=== PATIENT | female | born 1935 | race Caucasian/White ===

== ENCOUNTER 2020-07-11 02:23 | Inpatient (IN) ==
--- NOTE | 2020-07-11 02:51 | Emergency Department Note ---
SOB HPI General Chief Complaint: Shortness of Breath/Dyspnea Stated Complaint: shortness of breathe Time Seen by Provider: 07/11/20 02:38 Mode of arrival: EMS Limitations: no limitations History of Present Illness HPI Narrative: Narrative: This 85-year-old female comes to the emergency room by EMS from her home, after described shortness of breath. She finished two antibiotics 2 days ago, they were prescribed at [facility] for >>> She reports trying to sleep in her bed instead of recliner causing today's shortness of breaht. Her triage vitals with elevated BP at 213/121, pulse elevated at 115, RR @25, T @ 97.4, 95%. Patient reports some degree of sweatiness just this evening and nausea accompanied with just difficulty getting her breath. She had been on an albuterol that had been given to her as an inhaler earlier in the course and has been using it about every 4 hours. She has no history of asthma but does have a history of pneumonia. She does not believe she has had fevers or chills or sweats prior as a problem. She has had a little bit of runny nose but no sore throat. She has had some cough that has occurred just this last day or 2 with some clear phlegm noted this evening as well. She has had some swelling in her legs and took a diuretic for a few days but then her doctor had her stop it. This was a few days ago. She is feeling quite fatigued and tired as well generally. She denies having missed any of her blood pressure medication(s). Related Data Home Medications Medication Instructions Recorded Confirmed Ca-D3-mag fo-mjfj-eot-h[place]-bor 1 tab PO DAILY 07/11/20 07/11/20 [Calcium 600-D3 Plus (mag-zinc)] Lactobacillus acidophilus 10 mg PO QDAY 07/11/20 07/11/20 albuterol sulfate 2 puff INHALATION Q4HP PRN 07/11/20 07/11/20 chromium picolinate 400 mcg PO QDAY 07/11/20 07/11/20 ergocalciferol (vitamin D2) 10 mcg PO QDAY 07/11/20 07/11/20 escitalopram oxalate 5 mg PO QDAY 07/11/20 07/11/20 fexofenadine 180 mg PO HS 07/11/20 07/11/20 furosemide [Lasix] 20 mg PO DAILY PRN 07/11/20 07/11/20 losartan 50 mg PO BID 07/11/20 07/11/20 vit B ddgy-C-mvpva acid-vit D3 1 tab PO DAILY 07/11/20 07/11/20 Allergies Allergy/AdvReac Type Severity Reaction Status Date / Time clarithromycin Allergy Unknown Unknown Verified 07/11/20 03:06 doxycycline Allergy Unknown Unknown Verified 07/11/20 03:06 methylprednisolone Allergy Unknown Unknown Verified 07/11/20 03:06 Penicillins Allergy Unknown Unknown Verified 07/11/20 03:06 Review of Systems ROS ROS Narrative: Narrative: 10 system Review of Systems negative except as mentioned above. [facility] Narrative Patient History Narrative: Narrative: Medical/Surgical/Family History All Active Problems (Updated 07/11/20 @ 09:11 by Pedro Villaseñor DO) Pneumonia of both lower lobes (Acute) Acute CHF (congestive heart failure) (Acute) Hypoxia (Acute) Debility (Acute) GETACHEW (generalized anxiety disorder) (Acute) Hypertension, essential (Acute) Medical History (Updated 07/11/20 @ 09:11 by Pedro Villaseñor DO) GETACHEW (generalized anxiety disorder) (Acute) Hypertension, essential (Acute) Surgical History (Updated 07/11/20 @ 03:36 by Pedro Villaseñor DO) History of breast biopsy (Acute) benign Social History Smoking Status: Former smoker Alcohol Intake Frequency: does not drink Substance Use: does not use Exam Narrative Narrative: Narrative: General Limitations: no limitations General appearance: Present alert, in no apparent distress, malaise, nontoxic and other (Is moderately short of breath) Head Head: Present atraumatic and normocephalic Eye Eye: Present normal appearance, PERRL and EOMI ENT ENT: Present normal oropharynx and mucous membranes moist Neck Neck: Present trachea midline and other (Anterior upper neck and under the chin area was actually very cool to cold in temperature.); Absent lymphadenopathy and thyromegaly Chest Chest: Present symmetric chest wall rise Respiratory Respiratory: Present rales/crackles (Mild to moderate expiratory wheeze and no crackles throughout all lung stoll.) and prolonged expiratory phase (slightly or mildly); Absent respiratory distress, stridor and accessory muscle use Cardiovascular Cardiovascular: Present regular rate and tachycardia; Absent systolic murmur and diastolic murmur Adbominal Abdominal: Present soft; Absent distention, tenderness, guarding, rebound, rigidity, organomegaly and mass Extremities Extremities: Present pedal edema and pretibial edema (2/4 pitting bilateral); Absent calf tenderness and cyanosis Back Back: Neurological Neurological: Present alert, oriented X3 and other (fatigued/tired but responds appropriately and intelligently.) Psychiatric Psychiatric: Present flat affect, serious and poor eye contact (mildly; appears to be due to breathing effort, and fatigue.); Absent depressed, agitated and anx ious Skin Skin: Present cool and dry; Absent cyanosis and pallor Course Vital Signs Vital signs: Vital Signs Temperature 97.4 F 07/11/20 02:25 Pulse Rate 115 H 07/11/20 02:25 Respiratory Rate 25 H 07/11/20 02:25 Blood Pressure 213/121 07/11/20 02:25 Pulse Oximetry (%) 95 07/11/20 02:25 Temperature 98.6 F 07/11/20 04:10 Pulse Rate 97 H 07/11/20 09:01 Respiratory Rate 22 07/11/20 09:01 Blood Pressure 163/88 07/11/20 09:01 Pulse Oximetry (%) 95 07/11/20 09:01 [facility] MDM Narrative Medical decision making narrative: Narrative: 3:04 AM - EKG demonstrates sinus tachycardia with no ACS. Probable left atrial enlargement. 3:15 AM - patient interviewed and examined. Recent treatment for pneumonia with seeming worsening shortness of breath that is quite significant. She has had some edema as well but no specific history of CHF. Here with cough and expiratory wheezes throughout. We will give her an albuterol MDI treatment with spacer device. Her blood pressures are still significantly elevated but will observe and if they do not come down then treat. 3:49 AM - on my review chest x-ray demonstrates bibasilar patchy infiltrates with also increased markings throughout all lung stoll compatible with some degree of CHF/pulmonary congestion. We will go ahead with a diuretic and if blood pressure does not come down then nitroglycerin. Intensive chart review from her recent ED visit at [facility] on 06/27/20 reveals: * shortness of breath onset 1 week prior to this date and had been seen recently previous to this date at urgent care and prescribed azithromycin and then in PCP's office Maite Martinez. * There was also an anxiety medication that she had not yet picked up. * Benazepril is her blood pressure medication. * At home and oximetry went as low as 83%. She does not usually use oxygen at home. * No cardiac history except for the hypertension * denied recent travel, calf pain or tenderness, recent surgery, history of malignancy, hemoptysis or DVT. * She also reported an allergy to methylprednisolone and penicillins as well as clarithromycin and doxycycline. * She is a former smoker. * She had a low sodium of 129 as well as a random glucose elevated at 203. * Chest x-ray impression was small effusions and atelectasis. Or pulmonary congestion but no infiltrate. depending on which area of the chart I am reading from. * She was given ceftriaxone and then cefdinir was added to her azithromycin. * Her Covid test (negative) was an RNA NAAT. 4:18 AM - ABG comes back with room air pH 7.34, PCO2 45, PO2 84, base excess -1.7, HCO3 24. Lactic acid 1.4. 4:50 AM - patient's clinical status significantly improved with less dyspnea and much clear lungs after the furosemide. 5:30 AM - labs include CBC coming back with a white count of 12.5. Other labs p ending. 5:49 AM - upon calling lab they report still 10 to 15 minutes before results come back. Nursing reports that patient's oxygen delivery was weaned down to room air but with sleeping went down to 88 or 89% and so an additional liter added back. 6:26 AM - official reading from occludes: Pleura:Findings consistent with small bilateral pleural effusions, left worse than right IMPRESSION: 1. Bilateral diffuse interstitial infiltrates with bibasilar predominance 2. Interstitial pulmonary edema is possible. 3. Pleural effusions are not typical of interstitial fibrosis or Covid pneumoni a although interstitial edema could be superimposed upon these processes. 6:26 AM - labs include: Electrolytes mildly abnormal with sodium 128, chloride 95, carbon dioxide is 20 but anion gap normal at 13.0. Glucose elevated at 241. LFTs, proteins unremarkable. Troponin less than 0.01. * Will do a second serial troponin. BNP elevated at 4402. Pro calcitonin is 0.05. Covid rapid/[place] PCR is negative. * Will order the RNA NAAT. 9:00 AM - patient remains mildly dyspneic but much better but still very sleepy and still requiring oxygen to keep her oximetry above 89%. She is willing to stay which is recommended based on hypoxia, initial respiratory distress, pneumonia on x-ray plus pulmonary edema, hyponatremia, etc. Care transferred to Dr. Simpson who will help facilitate this admission. Lab Data Result diagrams: 07/11/20 04:07 07/11/20 04:07 Labs: Lab Results 07/11/20 07/11/20 07/11/20 Range/Units 04:07 04:07 04:07 WBC 12.5 H (4.5-11.0) K/mcL RBC 4.14 (4.00-5.20) M/mcL Hgb 12.7 (12.0-15.0) g/dL Hct 38.0 (36.0-48.0) % MCV 91.8 (80.0-100.0) fL MCH 30.7 (26.0-34.0) pg MCHC 33.4 (31.0-36.0) g/dL RDW 13.2 (11.5-14.5) % Plt Count 253 (140-440) K/mcL MPV 11.3 H (7.4-10.4) fL Neut % (Auto) 88.6 H (38.0-78.0) % Lymph % (Auto) 6.0 L (15.0-49.0) % [place] % (Auto) 4.7 (1.0-12.0) % Eos % (Auto) 0.3 (0.0-7.0) % Baso % (Auto) 0.4 (0.0-2.0) % Lymph # (Auto) 0.75 L (1.50-4.80) K/mcL [place] # (Auto) 0.59 (0.10-0.90) K/mcL Eos # (Auto) 0.04 (0.00-0.70) K/mcL Baso # (Auto) 0.05 (0.00-0.20) K/mcL Absolute Neutrophils 11.11 H (1.80-8.00) K/mcL Sodium 128 L (133-145) mmol/L Potassium 4.4 (3.3-5.1) mmol/L Chloride 95 L (96-108) mmol/L Carbon Dioxide 20 L (22-30) mmol/L Anion Gap 13.0 (8.0-16.0) BUN 17 (8-23) mg/dL Creatinine 1.1 (0.6-1.1) mg/dL GFR Calculation 45 Glucose 241 H (70-105) mg/dL Calcium 9.0 (8.6-10.4) mg/dL Magnesium 2.2 (1.6-2.5) mg/dL Total Bilirubin 0.9 (0.1-1.0) mg/dL AST 23 (<32) U/L ALT 16 (<40) U/L Alkaline Phosphatase 75 (39-117) U/L Troponin T < 0.01 (<0.03) ng/mL NT-Pro-B Natriuret Pep 4402.0 H (<450.0) pg/mL Total Protein 6.8 (5.9-8.4) gm/dL Albumin 4.0 (3.2-5.2) gm/dL Globulin 2.8 (2.2-3.7) gm/dL Albumin/Globulin Ratio 1.4 (1.0-2.3) Procalcitonin (<0.10) ng/mL SARS-CoV-2 (PCR) (Negative) 07/11/20 07/11/20 07/11/20 Range/Units 04:07 04:07 07:05 WBC (4.5-11.0) K/mcL RBC (4.00-5.20) M/mcL Hgb (12.0-15.0) g/dL Hct (36.0-48.0) % MCV (80.0-100.0) fL MCH (26.0-34.0) pg MCHC (31.0-36.0) g/dL RDW (11.5-14.5) % Plt Count (140-440) K/mcL MPV (7.4-10.4) fL Neut % (Auto) (38.0-78.0) % Lymph % (Auto) (15.0-49.0) % [place] % (Auto) (1.0-12.0) % Eos % (Auto) (0.0-7.0) % Baso % (Auto) (0.0-2.0) % Lymph # (Auto) (1.50-4.80) K/mcL [place] # (Auto) (0.10-0.90) K/mcL Eos # (Auto) (0.00-0.70) K/mcL Baso # (Auto) (0.00-0.20) K/mcL Absolute Neutrophils (1.80-8.00) K/mcL Sodium (133-145) mmol/L Potassium (3.3-5.1) mmol/L Chloride (96-108) mmol/L Carbon Dioxide (22-30) mmol/L Anion Gap (8.0-16.0) BUN (8-23) mg/dL Creatinine (0.6-1.1) mg/dL GFR Calculation Glucose (70-105) mg/dL Calcium (8.6-10.4) mg/dL Magnesium (1.6-2.5) mg/dL Total Bilirubin (0.1-1.0) mg/dL AST (<32) U/L ALT (<40) U/L Alkaline Phosphatase (39-117) U/L Troponin T 0.01 (<0.03) ng/mL NT-Pro-B Natriuret Pep (<450.0) pg/mL Total Protein (5.9-8.4) gm/dL Albumin (3.2-5.2) gm/dL Globulin (2.2-3.7) gm/dL Albumin/Globulin Ratio (1.0-2.3) Procalcitonin 0.05 (<0.10) ng/mL SARS-CoV-2 (PCR) Negative (Negative) Discharge Plan Patient/Caregiver Discharge Instructions Pt seen by AUTOMATIC DRY STARCH OPERATOR/PA only: No Clinical Impression: Pneumonia of both lower lobes, Acute CHF (congestive heart failure), Hypoxia, Debility Patient Disposition: Still a Patient Condition: Undetermined Prescriptions: No Action losartan 50 mg Tablet 50 mg PO BID RF: 0 ergocalciferol (vitamin D2) 10 mcg (400 unit) Tablet 10 mcg PO QDAY RF: 0 fexofenadine 180 mg Tablet 180 mg PO HS RF: 0 Lactobacillus acidophilus Capsule 10 mg PO QDAY RF: 0 albuterol sulfate 90 mcg/actuation Hfa Aerosol Inhaler 2 puff INHALATION Q4HP PRN (Reason: Bronchospasm) RF: 0 chromium picolinate 400 mcg Tablet 400 mcg PO QDAY RF: 0 escitalopram oxalate 5 mg Tablet 5 mg PO QDAY RF: 0 Ca-D3-mag nw-wtjt-dfz-[place]-bor [Calcium 600-D3 Plus (mag-zinc)] 600 mg calcium- 800 unit-50 mg Tablet 1 tab PO DAILY RF: 0 vit B [id number]-T-dkqgr acid-vit D3 800 mcg- 2,000 unit Tablet,Chewable 1 tab PO DAILY RF: 0 furosemide [Lasix] 20 mg Tablet 20 mg PO DAILY PRN (Reason: Edema) RF: 0
[2020-07-11] MEDS ORDERED: LEVOFLOXACIN 750 MG/150 ML BAG IV ONE (03:28)
[2020-07-11] MEDS ORDERED: ALBUTEROL SULFATE 200 PUFF INHALER INH STA (03:44)
[2020-07-11] MEDS ORDERED: FUROSEMIDE 20 MG/2 ML VIAL IV ONE (03:50)
[2020-07-11 05:33] LABS: Basophils # (Auto) 0.05 K/mcL (0.00-0.20); Basophils % (Auto) 0.4 % (0.0-2.0); Eosinophils # (Auto) 0.04 K/mcL (0.00-0.70); Eosinophils % (Auto) 0.3 % (0.0-7.0); Hemoglobin 12.7 g/dL (12.0-15.0); Lymphocytes # (Auto) 0.75 K/mcL (1.50-4.80); Mean Cell Volume 91.8 fL (80.0-100.0); Mean Corpuscular HGB Conc 33.4 g/dL (31.0-36.0); Mean Platelet Volume 11.3 fL (7.4-10.4); Monocytes # (Auto) 0.59 K/mcL (0.10-0.90); Monocytes % (Auto) 4.7 % (1.0-12.0); Neutrophils % (Auto) 88.6 % (38.0-78.0); Platelet Count 253 K/mcL (140-440); RBC 4.14 M/mcL (4.00-5.20); Red Cell Distribution Width 13.2 % (11.5-14.5); WBC 12.5 K/mcL (4.5-11.0)
[2020-07-11 05:48] LABS: ALT/SGPT 16 U/L (<40); AST/SGOT 23 U/L (<32); Albumin/Globulin Ratio 1.4 (1.0-2.3); Alkaline Phosphatase 75 U/L (39-117); Bilirubin,Total 0.9 mg/dL (0.1-1.0); Blood Urea Nitrogen 17 mg/dL (8-23); Carbon Dioxide 20 mmol/L (22-30); Chloride 95 mmol/L (96-108); Globulin 2.8 gm/dL (2.2-3.7); Glomerular Filtration Rate 45; Glucose 241 mg/dL (70-105)
--- NOTE | 2020-07-11 06:04 | XRay Report ---
INDICATION: Shortness of Breath TECHNIQUE: AP portable semiupright chest x-ray COMPARISON: None FINDINGS: Lungs:Lungs are diffusely abnormal. There are bilateral parenchymal infiltrates which are predominantly interstitial. There is bibasilar predominance. There is bronchial wall thickening and there are septal lines. Etiology of these abnormal infiltrates is not certain. There are probable bilateral pleural effusions which are not typically identified with Covid pneumonia. Interstitial pulmonary edema or other atypical pneumonias are possible. Interstitial fibrosis is also possible although not typically associated with pleural effusions Comparison with any prior examinations would be helpful. Heart, vascular:No significant cardiomegaly. Mediastinum, aristides:No mediastinal widening. No hilar mass Pleura:Findings consistent with small bilateral pleural effusions, left worse than right Skeletal:Negative. IMPRESSION: 1. Bilateral diffuse interstitial infiltrates with bibasilar predominance 2. Interstitial pulmonary edema is possible. 3. Pleural effusions are not typical of interstitial fibrosis or Covid pneumonia although interstitial edema could be superimposed upon these processes. Interpreted and Authenticated by: Amol Juan 07/11/20
--- NOTE | 2020-07-11 10:13 | Emergency Department Note ---
SOB HPI General Chief Complaint: Shortness of Breath/Dyspnea Stated Complaint: shortness of breathe Time Seen by Provider: 07/11/20 02:38 Mode of arrival: EMS Limitations: no limitations History of Present Illness HPI Narrative: Narrative: I took over care of this patient at [address] Villaseñor. Related Data Home Medications Medication Instructions Recorded Confirmed Ca-D3-mag lq-vxcu-jmi-[place]-bor 1 tab PO DAILY 07/11/20 07/11/20 [Calcium 600-D3 Plus (mag-zinc)] Lactobacillus acidophilus 10 mg PO QDAY 07/11/20 07/11/20 albuterol sulfate 2 puff INHALATION Q4HP PRN 07/11/20 07/11/20 chromium picolinate 400 mcg PO QDAY 07/11/20 07/11/20 ergocalciferol (vitamin D2) 10 mcg PO QDAY 07/11/20 07/11/20 escitalopram oxalate 5 mg PO QDAY 07/11/20 07/11/20 fexofenadine 180 mg PO HS 07/11/20 07/11/20 furosemide [Lasix] 20 mg PO DAILY PRN 07/11/20 07/11/20 losartan 50 mg PO BID 07/11/20 07/11/20 vit B dchq-Q-noows acid-vit D3 1 tab PO DAILY 07/11/20 07/11/20 Allergies Allergy/AdvReac Type Severity Reaction Status Date / Time clarithromycin Allergy Unknown Unknown Verified 07/11/20 03:06 doxycycline Allergy Unknown Unknown Verified 07/11/20 03:06 methylprednisolone Allergy Unknown Unknown Verified 07/11/20 03:06 Penicillins Allergy Unknown Unknown Verified 07/11/20 03:06 Review of Systems ROS ROS Narrative: Narrative: PFSH Narrative Patient History Narrative: Narrative: Medical/Surgical/Family History All Active Problems (Updated 07/11/20 @ 09:11 by Pedro Villaseñor DO) Pneumonia of both lower lobes (Acute) Acute CHF (congestive heart failure) (Acute) Hypoxia (Acute) Debility (Acute) GETACHEW (generalized anxiety disorder) (Acute) Hypertension, essential (Acute) Medical History (Updated 07/11/20 @ 09:11 by Pedro Villaseñor DO) GETACHEW (generalized anxiety disorder) (Acute) Hypertension, essential (Acute) Surgical History (Updated 07/11/20 @ 03:36 by Pedro Villaseñor DO) History of breast biopsy (Acute) benign Social History Smoking Status: Former smoker Alcohol Intake Frequency: does not drink Substance Use: does not use Exam Narrative Narrative: Narrative: General Limitations: no limitations Course Vital Signs Vital signs: Vital Signs Temperature 97.4 F 07/11/20 02:25 Pulse Rate 115 H 07/11/20 02:25 Respiratory Rate 25 H 07/11/20 02:25 Blood Pressure 213/121 07/11/20 02:25 Pulse Oximetry (%) 95 07/11/20 02:25 Temperature 98.6 F 07/11/20 04:10 Pulse Rate 91 H 07/11/20 10:01 Respiratory Rate 17 07/11/20 10:01 Blood Pressure 143/81 07/11/20 10:01 Pulse Oximetry (%) 94 07/11/20 10:01 MDM MDM Narrative Medical decision making narrative: Narrative: BNP is over 4000 and the rapid Covid test was negative. Patient was given 20 mg of IV Lasix and started to have a diuresis but still required oxygen to keep saturations above 90. I discussed this case with Dr. Silva the patient will be admitted to the hospital. Lab Data Lab results reviewed: Yes I reviewed the patient's lab results. Result diagrams: 07/11/20 04:07 07/11/20 04:07 Labs: Lab Results 07/11/20 07/11/20 07/11/20 Range/Units 04:07 04:07 04:07 WBC 12.5 H (4.5-11.0) K/mcL RBC 4.14 (4.00-5.20) M/mcL Hgb 12.7 (12.0-15.0) g/dL Hct 38.0 (36.0-48.0) % MCV 91.8 (80.0-100.0) fL MCH 30.7 (26.0-34.0) pg MCHC 33.4 (31.0-36.0) g/dL RDW 13.2 (11.5-14.5) % Plt Count 253 (140-440) K/mcL MPV 11.3 H (7.4-10.4) fL Neut % (Auto) 88.6 H (38.0-78.0) % Lymph % (Auto) 6.0 L (15.0-49.0) % [place] % (Auto) 4.7 (1.0-12.0) % Eos % (Auto) 0.3 (0.0-7.0) % Baso % (Auto) 0.4 (0.0-2.0) % Lymph # (Auto) 0.75 L (1.50-4.80) K/mcL [place] # (Auto) 0.59 (0.10-0.90) K/mcL Eos # (Auto) 0.04 (0.00-0.70) K/mcL Baso # (Auto) 0.05 (0.00-0.20) K/mcL Absolute Neutrophils 11.11 H (1.80-8.00) K/mcL Sodium 128 L (133-145) mmol/L Potassium 4.4 (3.3-5.1) mmol/L Chloride 95 L (96-108) mmol/L Carbon Dioxide 20 L (22-30) mmol/L Anion Gap 13.0 (8.0-16.0) BUN 17 (8-23) mg/dL Creatinine 1.1 (0.6-1.1) mg/dL GFR Calculation 45 Glucose 241 H (70-105) mg/dL Calcium 9.0 (8.6-10.4) mg/dL Magnesium 2.2 (1.6-2.5) mg/dL Total Bilirubin 0.9 (0.1-1.0) mg/dL AST 23 (<32) U/L ALT 16 (<40) U/L Alkaline Phosphatase 75 (39-117) U/L Troponin T < 0.01 (<0.03) ng/mL NT-Pro-B Natriuret Pep 4402.0 H (<450.0) pg/mL Total Protein 6.8 (5.9-8.4) gm/dL Albumin 4.0 (3.2-5.2) gm/dL Globulin 2.8 (2.2-3.7) gm/dL Albumin/Globulin Ratio 1.4 (1.0-2.3) Procalcitonin (<0.10) ng/mL SARS-CoV-2 (PCR) (Negative) 07/11/20 07/11/20 07/11/20 Range/Units 04:07 04:07 07:05 WBC (4.5-11.0) K/mcL RBC (4.00-5.20) M/mcL Hgb (12.0-15.0) g/dL Hct (36.0-48.0) % MCV (80.0-100.0) fL MCH (26.0-34.0) pg MCHC (31.0-36.0) g/dL RDW (11.5-14.5) % Plt Count (140-440) K/mcL MPV (7.4-10.4) fL Neut % (Auto) (38.0-78.0) % Lymph % (Auto) (15.0-49.0) % [place] % (Auto) (1.0-12.0) % Eos % (Auto) (0.0-7.0) % Baso % (Auto) (0.0-2.0) % Lymph # (Auto) (1.50-4.80) K/mcL [place] # (Auto) (0.10-0.90) K/mcL Eos # (Auto) (0.00-0.70) K/mcL Baso # (Auto) (0.00-0.20) K/mcL Absolute Neutrophils (1.80-8.00) K/mcL Sodium (133-145) mmol/L Potassium (3.3-5.1) mmol/L Chloride (96-108) mmol/L Carbon Dioxide (22-30) mmol/L Anion Gap (8.0-16.0) BUN (8-23) mg/dL Creatinine (0.6-1.1) mg/dL GFR Calculation Glucose (70-105) mg/dL Calcium (8.6-10.4) mg/dL Magnesium (1.6-2.5) mg/dL Total Bilirubin (0.1-1.0) mg/dL AST (<32) U/L ALT (<40) U/L Alkaline Phosphatase (39-117) U/L Troponin T 0.01 (<0.03) ng/mL NT-Pro-B Natriuret Pep (<450.0) pg/mL Total Protein (5.9-8.4) gm/dL Albumin (3.2-5.2) gm/dL Globulin (2.2-3.7) gm/dL Albumin/Globulin Ratio (1.0-2.3) Procalcitonin 0.05 (<0.10) ng/mL SARS-CoV-2 (PCR) Negative (Negative) Radiology Data Radiology results reviewed: Yes I reviewed the patient's radiology results. Radiology results narrative: Chest x-ray is consistent with both congestive heart failure and Covid pneumonia Discharge Plan Patient/Caregiver Discharge Instructions Pt seen by COMMERCIAL DRONE SOFTWARE DEVELOPER/PA only: No Clinical Impression: Pneumonia of both lower lobes, Acute CHF (congestive heart failure), Hypoxia, Debility Patient Disposition: Xfer As Inpt ([facility]) Condition: Undetermined Prescriptions: No Action losartan 50 mg Tablet 50 mg PO BID RF: 0 ergocalciferol (vitamin D2) 10 mcg (400 unit) Tablet 10 mcg PO QDAY RF: 0 fexofenadine 180 mg Tablet 180 mg PO HS RF: 0 Lactobacillus acidophilus Capsule 10 mg PO QDAY RF: 0 albuterol sulfate 90 mcg/actuation Hfa Aerosol Inhaler 2 puff INHALATION Q4HP PRN (Reason: Bronchospasm) RF: 0 chromium picolinate 400 mcg Tablet 400 mcg PO QDAY RF: 0 escitalopram oxalate 5 mg Tablet 5 mg PO QDAY RF: 0 Ca-D3-mag zy-vwyd-elx-[place]-bor [Calcium 600-D3 Plus (mag-zinc)] 600 mg calcium- 800 unit-50 mg Tablet 1 tab PO DAILY RF: 0 vit B mwxn-Q-zktoq acid-vit D3 800 mcg- 2,000 unit Tablet,Chewable 1 tab PO DAILY RF: 0 furosemide [Lasix] 20 mg Tablet 20 mg PO DAILY PRN (Reason: Edema) RF: 0
--- NOTE | 2020-07-11 10:20 | Internal Med History&Physical ---
HPI History of Present Illness Patient information: Note initiated : 07/11/20 at 10:18 am Service Date, if different from initiated Date: [] Patient: Yaz Gómez 85 y/o F admitted on for SOB . Chief Complaint: [] History of present illness: Ms. Gómez is a 85 year old F Patient recently seen at [facility] for pneumonia finished antibiotics several days ago. Presents today with increasing shortness of breath. Has been sleeping in recliner when she got home from [facility] but tried to sleep in her bed last night which made symptoms worse. With orthopnea. She also complains of swelling in her legs. She denies any history of cardiac issues. He had a Covid test at [facility] in here rapid which was negative. Her procalcitonin is low. He is afebrile. She denies any coughing to last night which she says the coughing started mildly and has some foamy appearance to it. Review of Systems: Pertinent positives above. Denies headache/fever/chills/nausea/vomiting/chest or abdominal pain/diarrhea. Many 10 point review of system reviewed negative PFSH PFSH All Active Problems (Updated 07/11/20 @ 09:11 by Pedro Villaseñor DO) Pneumonia of both lower lobes (Acute) Acute CHF (congestive heart failure) (Acute) Hypoxia (Acute) Debility (Acute) GETACHEW (generalized anxiety disorder) (Acute) Hypertension, essential (Acute) Medical History (Updated 07/11/20 @ 09:11 by Pedro Villaseñor DO) GETACHEW (generalized anxiety disorder) (Acute) Hypertension, essential (Acute) Surgical History (Updated 07/11/20 @ 03:36 by Pedro Villaseñor DO) History of breast biopsy (Acute) benign Social History (Updated 07/11/20 @ 10:20 by Christian Silva DO) smoking status: Former smoker alcohol intake frequency: does not drink substance use type: does not use additional history: Surgical History: Cholecystectomy, Tubal ligation, 1979, Lumpectomy left breast. Family History Father (biol.) - Hardening of arteries Son (biol.) - Other Cancer Social History: Smoked Tobacco Use: Former smoker Cigarettes: Yes Year quit: 1984 Years Since Last Quit: 35 Smokeless Tobacco Use: Never Passive smoke exposure: no Drug use: no HIV high-risk behavior: no Caffeine use: 1 drinks per day Alcohol use: no Exercise: no Marital Status: Current Employment: retired [employer] Home Medications and Allergies Home Medications Medication Instructions Recorded Confirmed Type Ca-D3-mag kj-scoa-drr-h[place]-bor 1 tab PO DAILY 07/11/20 07/11/20 History [Calcium 600-D3 Plus (mag-zinc)] Lactobacillus acidophilus 10 mg PO QDAY 07/11/20 07/11/20 History albuterol sulfate 2 puff INHALATION Q4HP PRN 07/11/20 07/11/20 History chromium picolinate 400 mcg PO QDAY 07/11/20 07/11/20 History ergocalciferol (vitamin D2) 10 mcg PO QDAY 07/11/20 07/11/20 History escitalopram oxalate 5 mg PO QDAY 07/11/20 07/11/20 History fexofenadine 180 mg PO HS 07/11/20 07/11/20 History furosemide [Lasix] 20 mg PO DAILY PRN 07/11/20 07/11/20 History losartan 50 mg PO BID 07/11/20 07/11/20 History vit B fbfy-A-crwer acid-vit D3 1 tab PO DAILY 07/11/20 07/11/20 History Allergies Allergy/AdvReac Type Severity Reaction Status Date / Time clarithromycin Allergy Unknown Unknown Verified 07/11/20 03:06 doxycycline Allergy Unknown Unknown Verified 07/11/20 03:06 methylprednisolone Allergy Unknown Unknown Verified 07/11/20 03:06 Penicillins Allergy Unknown Unknown Verified 07/11/20 03:06 EXAM Constitutional Vitals: Temp Pulse Resp BP Pulse Ox 98.6 F 91 H 17 143/81 94 07/11/20 04:10 07/11/20 10:01 07/11/20 10:01 07/11/20 10:01 07/11/20 10:01 Exam: General: Alert, Awake, No acute Distress Eyes/N/T: EOMI, PERRL, JVD Head/Neck: neck supple, normocephalic atraumatic CV: RRR, 1/6 SM, normal s1/s2 Pulm: bibase rales, no wheezing Abd: soft, nontender, +BS x4 Ext: no clubbing/cyanosis, 1+ b/l LE edema Neuro: Alert, no focal deficits, moves all extremities, CN 2-12 grossly intact, symmetrical strength b/l upper/lower, sensations intact b/l upper/lower Skin: warm/dry DATA Data Completed and Pending Labs: Labs from last 24 hours 07/11/20 07/11/20 07/11/20 09:48 07:05 04:07 WBC RBC Hgb Hct MCV MCH MCHC RDW Plt Count MPV Neut % (Auto) Lymph % (Auto) [place] % (Auto) Eos % (Auto) Baso % (Auto) Lymph # (Auto) [place] # (Auto) Eos # (Auto) Baso # (Auto) Absolute Neutrophils Sodium Potassium Chloride Carbon Dioxide Anion Gap BUN Creatinine GFR Calculation Glucose Calcium Magnesium Total Bilirubin AST ALT Alkaline Phosphatase Troponin T 0.01 NT-Pro-B Natriuret Pep Total Protein Albumin Globulin Albumin/Globulin Ratio Procalcitonin SARS-CoV-2 (PCR) Pending Negative 07/11/20 07/11/20 07/11/20 04:07 04:07 04:07 WBC RBC Hgb Hct MCV MCH MCHC RDW Plt Count MPV Neut % (Auto) Lymph % (Auto) [place] % (Auto) Eos % (Auto) Baso % (Auto) Lymph # (Auto) [place] # (Auto) Eos # (Auto) Baso # (Auto) Absolute Neutrophils Sodium 128 L Potassium 4.4 Chloride 95 L Carbon Dioxide 20 L Anion Gap 13.0 BUN 17 Creatinine 1.1 GFR Calculation 45 Glucose 241 H Calcium 9.0 Magnesium 2.2 Total Bilirubin 0.9 AST 23 ALT 16 Alkaline Phosphatase 75 Troponin T < 0.01 NT-Pro-B Natriuret Pep 4402.0 H Total Protein 6.8 Albumin 4.0 Globulin 2.8 Albumin/Globulin Ratio 1.4 Procalcitonin 0.05 SARS-CoV-2 (PCR) 07/11/20 04:07 WBC 12.5 H RBC 4.14 Hgb 12.7 Hct 38.0 MCV 91.8 MCH 30.7 MCHC 33.4 RDW 13.2 Plt Count 253 MPV 11.3 H Neut % (Auto) 88.6 H Lymph % (Auto) 6.0 L [place] % (Auto) 4.7 Eos % (Auto) 0.3 Baso % (Auto) 0.4 Lymph # (Auto) 0.75 L [place] # (Auto) 0.59 Eos # (Auto) 0.04 Baso # (Auto) 0.05 Absolute Neutrophils 11.11 H Sodium Potassium Chloride Carbon Dioxide Anion Gap BUN Creatinine GFR Calculation Glucose Calcium Magnesium Total Bilirubin AST ALT Alkaline Phosphatase Troponin T NT-Pro-B Natriuret Pep Total Protein Albumin Globulin Albumin/Globulin Ratio Procalcitonin SARS-CoV-2 (PCR) A/P Narrative A/P Narrative: A: *Acute on likely chronic CHF: -trop neg, no chest pain *Acute hypoxic respiratory failure: 2/2 above *HTN urgency: improved in ED *Hyponatremia: 2/2 volume overload *CKD stage III: *Anxiety/depression: *HTN: On losartan * P: -IV lasix today and tomorrow morning -UOP, i/o/weights -nitro bid x1, monitor BP -echo pending -cardiac meds once echo return -cont ARB, BB likely in AM after diuresis today - -PT/OT -ppx: Lovenox DNR Time Spent With Patient Time: Total time spent is greater than 50% in coordination of care (as documented) at patient's floor/unit and/or counseling patient:
[2020-07-11] MEDS ORDERED: NITROGLYCERIN 1 GM OINT.TOP TD ONE (10:33)
[2020-07-11] MEDS ORDERED: NITROGLYCERIN 1 GM OINT.TOP ONE (10:55)
[2020-07-11] MEDS ORDERED: ALBUTEROL SULFATE 200 PUFF INHALER INH PRN (12:06)
[2020-07-11] MEDS ORDERED: DEXTROSE 50% 50 ML VIAL IV PRN (12:06)
[2020-07-11] MEDS ORDERED: ONDANSETRON 4 MG/2 ML VIAL IV PRN (12:06)
[2020-07-11] MEDS ORDERED: POTASSIUM CHLORIDE 20 MEQ TABLET PO PRN ×2 (12:06)
[2020-07-11] MEDS ORDERED: ACETAMINOPHEN 325 MG TABLET PO PRN (12:06)
[2020-07-11] MEDS ORDERED: MAGNESIUM SULFATE 2 GM/50 ML BAG IV PRN (12:06)
[2020-07-11] MEDS ORDERED: DEXTROSE 31 GM ORAL.SUSP PO PRN (12:06)
[2020-07-11] MEDS ORDERED: POTASSIUM CHLORIDE 40 MEQ in DEXTROSE 5% IN WATER 500 ML IV PRN (12:06)
[2020-07-11] MEDS ORDERED: SENNOSIDES 1 TABLET PO PRN (12:06)
[2020-07-11] MEDS: INSULIN LISPRO 1 UNIT/0.01 ML UNIT SQ SCH ×3 (12:35→20:24)
[2020-07-11 13:03] LABS: Hemoglobin A1C 6.3 % Hgb (4.0-6.0)
[2020-07-11 15:34] LABS: Lymphocytes % 5 % (15-49); Monocytes % (Manual) 6 % (1-12); Platelet Estimate NORMAL (Normal); RBC Morphology NORMAL (Normal); Segmented Neutrophils % 89 % (38-78)
[2020-07-11] MEDS: FUROSEMIDE 40 MG/4 ML VIAL IV SCH (16:29)
[2020-07-11] MEDS: 0.9 % SODIUM CHLORIDE 10 ML SYRINGE IV SCH ×2 (16:29→20:26)
[2020-07-11] MEDS: ENALAPRILAT 1.25 MG/ML VIAL IV PRN ×2 (17:46→22:18)
[2020-07-11] MEDS: DOCUSATE SODIUM 100 MG CAPSULE PO SCH (20:25)
[2020-07-11] MEDS: LOSARTAN 50 MG TABLET PO SCH (20:25)
[2020-07-12] MEDS: ENALAPRILAT 1.25 MG/ML VIAL IV PRN ×2 (01:53→04:12)
[2020-07-12] MEDS: 0.9 % SODIUM CHLORIDE 10 ML SYRINGE IV SCH ×3 (04:17→21:45)
[2020-07-12 06:33] LABS: Basophils # (Auto) 0.03 K/mcL (0.00-0.20); Basophils % (Auto) 0.4 % (0.0-2.0); Eosinophils # (Auto) 0.07 K/mcL (0.00-0.70); Hematocrit 36.8 % (36.0-48.0); Hemoglobin 11.8 g/dL (12.0-15.0); Lymphocytes # (Auto) 0.77 K/mcL (1.50-4.80); Mean Cell Volume 95.6 fL (80.0-100.0); Mean Corpuscular HGB Conc 32.1 g/dL (31.0-36.0); Mean Platelet Volume 10.9 fL (7.4-10.4); Monocytes # (Auto) 0.76 K/mcL (0.10-0.90); Monocytes % (Auto) 10.9 % (1.0-12.0); Neutrophils % (Auto) 76.7 % (38.0-78.0); Platelet Count 185 K/mcL (140-440); RBC 3.85 M/mcL (4.00-5.20); Red Cell Distribution Width 13.6 % (11.5-14.5)
[2020-07-12] MEDS: INSULIN LISPRO 1 UNIT/0.01 ML UNIT SQ SCH ×4 (07:20→21:44)
[2020-07-12] MEDS: ESCITALOPRAM 10 MG TABLET PO SCH (08:30)
[2020-07-12] MEDS: FOLIC ACID/VITAMIN B COMP W-C 1 TAB TABLET PO SCH (08:30)
[2020-07-12] MEDS: LOSARTAN 50 MG TABLET PO SCH ×2 (08:30→21:43)
[2020-07-12] MEDS: DOCUSATE SODIUM 100 MG CAPSULE PO SCH ×2 (08:30→21:43)
[2020-07-12] MEDS: FUROSEMIDE 40 MG/4 ML VIAL IV SCH (08:30)
[2020-07-12] MEDS: ENOXAPARIN 40 MG/0.4 ML SYRINGE SQ SCH (08:30)
[2020-07-12 08:49] LABS: ALT/SGPT 13 U/L (<40); AST/SGOT 20 U/L (<32); Albumin 3.7 gm/dL (3.2-5.2); Albumin/Globulin Ratio 1.5 (1.0-2.3); Alkaline Phosphatase 63 U/L (39-117); Bilirubin,Direct 0.3 mg/dL (<0.3); Bilirubin,Total 1.2 mg/dL (0.1-1.0); Blood Urea Nitrogen 15 mg/dL (8-23); Calcium 8.9 mg/dL (8.6-10.4); Carbon Dioxide 25 mmol/L (22-30); Chloride 91 mmol/L (96-108); Globulin 2.5 gm/dL (2.2-3.7); Glomerular Filtration Rate 45; Glucose 133 mg/dL (70-105); Lactate Dehydrogenase 204 U/L (135-225); Phosphorous 3.2 mg/dL (2.5-4.5); Triglycerides 64 mg/dL (<150); Uric Acid 3.6 mg/dL (2.5-8.0)
--- NOTE | 2020-07-12 12:04 | Internal Med Progress Note ---
SUBJECTIVE Subjective Patient information: Note initiated : 07/12/20 at 12:02 pm Service Date, if different from initiated Date: [] Patient: Yaz Gómez 85 y/o F admitted on 07/11/20 for SOB . Chief Complaint: Patient recently seen at [facility] for pneumonia finished antibiotics several days ago. Presents today with increasing shortness of breath. Has been sleeping in recliner when she got home from [facility] but tried to sleep in her bed last night which made symptoms worse. With orthopnea. She also complains of swelling in her legs. She denies any history of cardiac issues. He had a Covid test at [facility] in here rapid which was negative. Her procalcitonin is low. He is afebrile. She denies any coughing to last night which she says the coughing started mildly and has some foamy appearance to it. 07/12-patient doing well. On diuretics. Diuresing well. Much improved work of breathing. White count down to 7 from 12.5, sodium 120 potassium down to 3.2 on replacement. Blood sugars at goal. Creatinine stable at 1.1. Covid PCR pending. Diuresis over 3000 cc. Constitutional Vitals: Vital Signs Temp Pulse Resp BP Pulse Ox 98 F 97 H 19 166/96 95 07/12/20 07:27 07/12/20 08:45 07/12/20 08:45 07/12/20 08:01 07/12/20 08:45 Period Temp Pulse Resp BP Sys/Vásquez Pulse Ox Last 24 Hr 96.5 F-99.1 F 85-115 13-31 133-217/74-121 88-97 Intake and Output 07/11/20 07/12/20 07/12/20 21:59 05:59 13:59 Intake Total 480 Output Total 1100 900 800 Balance -620 -900 -800 Weight 68.039 kg 68.039 kg Patient Weight 07/13/20 05:59 Weight 68.039 kg Alert oriented nonlabored breathing No anxiety On room air Intake & Output: Intake & Output 07/11/20 07/12/20 07/12/20 21:59 05:59 13:59 Intake Total 480 Output Total 1100 900 800 Balance -620 -900 -800 Weight 68.039 kg 68.039 kg Intake: Oral 480 Output: Void Amount 1100 900 800 Other: Meal Dinner Breakfast Percent of Meal Consumed 75% 100% Feeding Ability Independent Independent Urine Appearance Clear Clear Urine Color Pale Pale Pale Urine Odor Normal Normal Stool Size Small Stool Color Brown Stool Consistency Formed # Bowel Movements 1 OBJ DATA Labs CBC & Chem 7: 07/12/20 05:10 07/12/20 07:46 Labs: Abnormal Lab Results 07/12/20 07/12/20 07/11/20 07:46 05:10 07:05 WBC RBC 3.85 L Hgb 11.8 L MPV 10.9 H Neut % (Auto) Lymph % (Auto) 11.0 L Lymph # (Auto) 0.77 L Seg Neutrophils % 89 H Lymphocytes % 5 L Absolute Neutrophils Sodium 128 L Potassium 3.2 L Chloride 91 L Carbon Dioxide Glucose 133 H Hemoglobin A1c Total Bilirubin 1.2 H Direct Bilirubin 0.3 H NT-Pro-B Natriuret Pep 07/11/20 07/11/20 07/11/20 04:07 04:07 04:07 WBC 12.5 H RBC Hgb MPV 11.3 H Neut % (Auto) 88.6 H Lymph % (Auto) 6.0 L Lymph # (Auto) 0.75 L Seg Neutrophils % Lymphocytes % Absolute Neutrophils 11.11 H Sodium 128 L Potassium Chloride 95 L Carbon Dioxide 20 L Glucose 241 H Hemoglobin A1c 6.3 H Total Bilirubin Direct Bilirubin NT-Pro-B Natriuret Pep 4402.0 H Meds: Medications Acetaminophen (Tylenol) 650 mg PO Q6HP PRN PRN Reason: PAIN/FEVER > 101 Last Admin: 07/11/20 16:45 Dose: 650 mg Documented by: Albuterol Sulfate (Ventolin) 2 puff INH Q4HP PRN PRN Reason: Bronchospasm Dextrose (Dextrose 50%) 0 ml IV UD PRN PRN Reason: Hypoglycemia Diagnostic Test (Pha) (Accu-Chek) 1 each FS ACHS [facility] Last Admin: 07/12/20 07:20 Dose: 1 each Documented by: Docusate Sodium (Colace) 100 mg PO BID [facility] Last Admin: 07/12/20 08:30 Dose: 100 mg Documented by: Enalaprilat (Vasotec) 0 mg IV Q2HP PRN PRN Reason: Hypertension Last Admin: 07/12/20 04:12 Dose: 1.25 mg Documented by: Enoxaparin Sodium (Lovenox) 40 mg SQ DAILY [facility] Last Admin: 07/12/20 08:30 Dose: 40 mg Documented by: Escitalopram Oxalate (Lexapro) 5 mg PO DAILY [facility] Last Admin: 07/12/20 08:30 Dose: 5 mg Documented by: Glucose (Insta-Glucose) 15 gm PO PRN PRN PRN Reason: Hypoglycemia Potassium Chloride 40 meq/ (Dextrose) 520 mls @ 130 mls/hr IV UD PRN PRN Reason: Potassium < 3 Magnesium Sulfate (Magnesium Sulfate) 2 gm in 50 mls @ 50 mls/hr IV UD PRN PRN Reason: Magnesium </= 1.6 Insulin Human Lispro (Humalog) 0 unit SQ ACHS [facility]; Protocol Last Admin: 07/12/20 07:20 Dose: Not Given Documented by: Losartan Potassium (Cozaar) 50 mg PO BID [facility] Last Admin: 07/12/20 08:30 Dose: 50 mg Documented by: Multivit/Ca Carb/B Cmplx/FA/Prenat (Diatx) 1 tab PO DAILY [facility] Last Admin: 07/12/20 08:30 Dose: 1 tab Documented by: Ondansetron HCl (Zofran) 4 mg IV Q4HP PRN PRN Reason: Nausea And Vomiting Potassium Chloride (Kdur) 40 meq PO UD PRN PRN Reason: Potssium is 3-3.5 Potassium Chloride (Kdur) 40 meq PO UD PRN PRN Reason: Potassium < 3 Senna (Senokot) 2 tab PO DAILYP PRN PRN Reason: Constipation Sodium Chloride (Saline Flush) 10 ml IV Q8 [facility] Last Admin: 07/12/20 04:17 Dose: 10 ml Documented by: A/P Narrative A/P Narrative: *Acute on likely chronic CHF: Diuresing well. Clinically improving.trop neg, no chest pain, echo 40% EF with grade 2 diastolic dysfunction *Acute hypoxic respiratory failure: 2/2 above clinically resolved now on room air, *HTN urgency: Resolved. Blood pressures improving *Hyponatremia: 2/2 volume overload *CKD stage III: *Anxiety/depression: *HTN: On losartan * Plan -Continue diuresis -Blood pressure management -cont ARB, BB -PT/OT -ppx: Lovenox DNR Time Spent With Patient Time: Total time spent is greater than 50% in coordination of care (as documented) at patient's floor/unit and/or counseling patient:
[2020-07-12] MEDS ORDERED: FEXOFENADINE 180 MG TABLET PO SCH (21:00)
[2020-07-13] MEDS: ENALAPRILAT 1.25 MG/ML VIAL IV PRN (02:05)
[2020-07-13] MEDS: 0.9 % SODIUM CHLORIDE 10 ML SYRINGE IV SCH ×3 (05:32→21:48)
[2020-07-13] MEDS ORDERED: METOPROLOL SUCCINATE 25 MG TAB.XL.24H PO SCH (09:00)
[2020-07-13] MEDS ORDERED: LACTOBACILLUS 1 CAPSULE PO SCH (09:00)
[2020-07-13] MEDS ORDERED: CHROMIUM PICOLINATE 400 MCG PO SCH (09:00)
[2020-07-13] MEDS ORDERED: ASPIRIN 81 MG TAB.CHEW PO SCH (09:00)
[2020-07-13] MEDS: ENOXAPARIN 40 MG/0.4 ML SYRINGE SQ SCH (09:15)
[2020-07-13] MEDS: FOLIC ACID/VITAMIN B COMP W-C 1 TAB TABLET PO SCH (09:16)
[2020-07-13] MEDS: ESCITALOPRAM 10 MG TABLET PO SCH (09:16)
[2020-07-13] MEDS: DOCUSATE SODIUM 100 MG CAPSULE PO SCH ×2 (09:17→21:46)
[2020-07-13] MEDS: LOSARTAN 50 MG TABLET PO SCH ×2 (09:17→21:46)
[2020-07-13] MEDS: INSULIN LISPRO 1 UNIT/0.01 ML UNIT SQ SCH ×4 (09:20→21:51)
[2020-07-13 09:59] LABS: Basophils # (Auto) 0.05 K/mcL (0.00-0.20); Basophils % (Auto) 0.7 % (0.0-2.0); Eosinophils # (Auto) 0.12 K/mcL (0.00-0.70); Eosinophils % (Auto) 1.6 % (0.0-7.0); Hematocrit 38.3 % (36.0-48.0); Hemoglobin 12.8 g/dL (12.0-15.0); Lymphocytes # (Auto) 0.93 K/mcL (1.50-4.80); Lymphocytes % (Auto) 12.4 % (15.0-49.0); Mean Cell Volume 90.1 fL (80.0-100.0); Mean Corpuscular HGB Conc 33.4 g/dL (31.0-36.0); Mean Platelet Volume 10.6 fL (7.4-10.4); Monocytes # (Auto) 0.79 K/mcL (0.10-0.90); Monocytes % (Auto) 10.5 % (1.0-12.0); Neutrophils % (Auto) 74.8 % (38.0-78.0); Platelet Count 236 K/mcL (140-440); RBC 4.25 M/mcL (4.00-5.20); Red Cell Distribution Width 13.2 % (11.5-14.5); WBC 7.5 K/mcL (4.5-11.0)
[2020-07-13 10:18] LABS: ALT/SGPT 12 U/L (<40); AST/SGOT 19 U/L (<32); Albumin 3.6 gm/dL (3.2-5.2); Albumin/Globulin Ratio 1.4 (1.0-2.3); Alkaline Phosphatase 62 U/L (39-117); Bilirubin,Direct 0.2 mg/dL (<0.3); Blood Urea Nitrogen 17 mg/dL (8-23); Calcium 9.4 mg/dL (8.6-10.4); Carbon Dioxide 27 mmol/L (22-30); Chloride 91 mmol/L (96-108); Globulin 2.6 gm/dL (2.2-3.7); Glomerular Filtration Rate 51; Glucose 155 mg/dL (70-105); Lactate Dehydrogenase 199 U/L (135-225); Phosphorous 3.2 mg/dL (2.5-4.5); Triglycerides 70 mg/dL (<150); Uric Acid 3.7 mg/dL (2.5-8.0)
[2020-07-13] MEDS ORDERED: ENALAPRILAT 1.25 MG/ML VIAL IV PRN (12:21)
[2020-07-13] MEDS ORDERED: SENNOSIDES 1 TABLET PO PRN (12:21)
[2020-07-13] MEDS ORDERED: ONDANSETRON 4 MG/2 ML VIAL IV PRN (12:21)
[2020-07-13] MEDS ORDERED: POTASSIUM CHLORIDE 20 MEQ TABLET PO PRN ×2 (12:21)
[2020-07-13] MEDS ORDERED: DEXTROSE 50% 50 ML VIAL IV PRN (12:21)
[2020-07-13] MEDS ORDERED: POTASSIUM CHLORIDE 40 MEQ in DEXTROSE 5% IN WATER 500 ML IV PRN (12:21)
[2020-07-13] MEDS ORDERED: MAGNESIUM SULFATE 2 GM/50 ML BAG IV PRN (12:21)
[2020-07-13] MEDS ORDERED: DEXTROSE 31 GM ORAL.SUSP PO PRN (12:21)
[2020-07-13] MEDS ORDERED: ALBUTEROL SULFATE 200 PUFF INHALER INH PRN (12:21)
[2020-07-13] MEDS ORDERED: ACETAMINOPHEN 325 MG TABLET PO PRN (12:21)
--- NOTE | 2020-07-13 18:49 | Internal Med Progress Note ---
SUBJECTIVE Subjective Patient information: Note initiated : 07/13/20 at 6:47 pm Service Date, if different from initiated Date: [] Patient: Yaz Gómez 85 y/o F admitted on 07/11/20 for SOB . Chief Complaint: Patient recently seen at [facility] for pneumonia finished antibiotics several days ago. Presents today with increasing shortness of breath. Has been sleeping in recliner when she got home from [facility] but tried to sleep in her bed last night which made symptoms worse. With orthopnea. She also complains of swelling in her legs. She denies any history of cardiac issues. He had a Covid test at [facility] in here rapid which was negative. Her procalcitonin is low. He is afebrile. She denies any coughing to last night which she says the coughing started mildly and has some foamy appearance to it. 07/12-patient doing well. On diuretics. Diuresing well. Much improved work of breathing. White count down to 7 from 12.5, sodium 120 potassium down to 3.2 on replacement. Blood sugars at goal. Creatinine stable at 1.1. Covid PCR pending. Diuresis over 3000 cc. 07/13-patient doing well. Ongoing physical therapy. Continues to feel weak however now on room air. Anticipate discharge in 24 hours with additional dose diuretics. Persistent elevation systolics, uptitrate beta-dameon. Constitutional Vitals: Vital Signs Temp Pulse Resp BP Pulse Ox 96.8 F L 83 16 143/87 95 07/13/20 16:00 07/13/20 16:00 07/13/20 16:00 07/13/20 16:00 07/13/20 16:00 Period Temp Pulse Resp BP Sys/Vásquez Pulse Ox Last 24 Hr 96.8 F-98.7 F 83-104 13-26 132-176/81-105 91-96 Intake and Output 07/13/20 07/13/20 07/13/20 05:59 13:59 21:59 Intake Total 240 240 480 Output Total 250 100 Balance -10 240 380 Alert oriented Nonlabored breathing Minimal anxiety Nondistended abdomen Intake & Output: Intake & Output 07/13/20 07/13/20 07/13/20 05:59 13:59 21:59 Intake Total 240 240 480 Output Total 250 100 Balance -10 240 380 Intake: Oral 240 240 480 Output: Void Amount 250 100 Other: Meal Lunch Dinner Percent of Meal Consumed 100% 100% Feeding Ability Independent Independent Urine Appearance Clear Clear Urine Color Bright Yellow Bright Yellow Urine Odor Normal Stool Size Small Stool Consistency Formed # Voids 1 1 # Bowel Movements 1 OBJ DATA Labs CBC & Chem 7: 07/13/20 09:03 07/13/20 09:03 Labs: Abnormal Lab Results 07/13/20 07/13/20 07/12/20 09:03 09:03 07:46 WBC RBC Hgb MPV 10.6 H Neut % (Auto) Lymph % (Auto) 12.4 L Lymph # (Auto) 0.93 L Seg Neutrophils % Lymphocytes % Absolute Neutrophils Sodium 129 L 128 L Potassium 3.2 L Chloride 91 L 91 L Carbon Dioxide Glucose 155 H 133 H Hemoglobin A1c Total Bilirubin 1.2 H Direct Bilirubin 0.3 H NT-Pro-B Natriuret Pep 07/12/20 07/11/20 07/11/20 05:10 07:05 04:07 WBC RBC 3.85 L Hgb 11.8 L MPV 10.9 H Neut % (Auto) Lymph % (Auto) 11.0 L Lymph # (Auto) 0.77 L Seg Neutrophils % 89 H Lymphocytes % 5 L Absolute Neutrophils Sodium Potassium Chloride Carbon Dioxide Glucose Hemoglobin A1c 6.3 H Total Bilirubin Direct Bilirubin NT-Pro-B Natriuret Pep 07/11/20 07/11/20 04:07 04:07 WBC 12.5 H RBC Hgb MPV 11.3 H Neut % (Auto) 88.6 H Lymph % (Auto) 6.0 L Lymph # (Auto) 0.75 L Seg Neutrophils % Lymphocytes % Absolute Neutrophils 11.11 H Sodium 128 L Potassium Chloride 95 L Carbon Dioxide 20 L Glucose 241 H Hemoglobin A1c Total Bilirubin Direct Bilirubin NT-Pro-B Natriuret Pep 4402.0 H Meds: Medications Acetaminophen (Tylenol) 650 mg PO Q6HP PRN PRN Reason: PAIN/FEVER > 101 Albuterol Sulfate (Ventolin) 2 puff INH Q4HP PRN PRN Reason: Bronchospasm Aspirin (Aspirin) 81 mg PO DAILY [facility] Dextrose (Dextrose 50%) 0 ml IV UD PRN PRN Reason: Hypoglycemia Diagnostic Test (Pha) (Accu-Chek) 1 each FS ACHS [facility] Last Admin: 07/13/20 16:49 Dose: 1 each Documented by: Docusate Sodium (Colace) 100 mg PO BID [facility] Enalaprilat (Vasotec) 0 mg IV Q2HP PRN PRN Reason: Hypertension Enoxaparin Sodium (Lovenox) 40 mg SQ DAILY [facility] Escitalopram Oxalate (Lexapro) 5 mg PO DAILY [facility] Fexofenadine HCl (Cara) 180 mg PO HS [facility] Glucose (Insta-Glucose) 15 gm PO PRN PRN PRN Reason: Hypoglycemia Magnesium Sulfate (Magnesium Sulfate) 2 gm in 50 mls @ 50 mls/hr IV UD PRN PRN Reason: Magnesium </= 1.6 Potassium Chloride 40 meq/ (Dextrose) 520 mls @ 130 mls/hr IV UD PRN PRN Reason: Potassium < 3 Insulin Human Lispro (Humalog) 0 unit SQ ACHS [facility]; Protocol Last Admin: 07/13/20 17:01 Dose: 2 units Documented by: Lactobacillus Rhamnosus (Culturelle) 1 cap PO QDAY [facility] Losartan Potassium (Cozaar) 50 mg PO BID [facility] Metoprolol Succinate (Toprol Xl) 25 mg PO DAILY [facility] Multivit/Ca Carb/B Cmplx/FA/Prenat (Diatx) 1 tab PO DAILY [facility] Ondansetron HCl (Zofran) 4 mg IV Q4HP PRN PRN Reason: Nausea And Vomiting Chromium Picolinate (400 Mcg Cap) 1 dose PO QDAY [facility] Potassium Chloride (Kdur) 40 meq PO UD PRN PRN Reason: Potssium is 3-3.5 Potassium Chloride (Kdur) 40 meq PO UD PRN PRN Reason: Potassium < 3 Senna (Senokot) 2 tab PO DAILYP PRN PRN Reason: Constipation Sodium Chloride (Saline Flush) 10 ml IV Q8 [facility] Last Admin: 07/13/20 16:50 Dose: 10 ml Documented by: A/P Narrative A/P Narrative: *Acute on likely chronic CHF: Diuresing well. Clinically improving.trop neg, no chest pain, echo 40% EF with grade 2 diastolic dysfunction *Acute hypoxic respiratory failure: 2/2 above clinically resolved now on room air, *HTN urgency: Resolved. Blood pressures improving on losartan/BB *Hyponatremia: 2/2 volume overload *CKD stage III:stable *Anxiety/depression: Plan -cont ARB, uptitrate BB -PT/OT -ppx: Lovenox -Possible discharge in 24 hours DNR Time Spent With Patient Time: Total time spent is greater than 50% in coordination of care (as documente d) at patient's floor/unit and/or counseling patient:
[2020-07-13] MEDS ORDERED: FEXOFENADINE 180 MG TABLET PO SCH (21:00)
[2020-07-14] MEDS: 0.9 % SODIUM CHLORIDE 10 ML SYRINGE IV SCH (04:41)
[2020-07-14] MEDS: INSULIN LISPRO 1 UNIT/0.01 ML UNIT SQ SCH ×2 (07:42→11:20)
[2020-07-14] MEDS ORDERED: ENOXAPARIN 40 MG/0.4 ML SYRINGE SQ SCH (09:00)
[2020-07-14] MEDS ORDERED: CHROMIUM PICOLINATE 400 MCG PO SCH (09:00)
[2020-07-14] MEDS ORDERED: LACTOBACILLUS 1 CAPSULE PO SCH (09:00)
[2020-07-14] MEDS ORDERED: METOPROLOL SUCCINATE 25 MG TAB.XL.24H PO SCH (09:00)
[2020-07-14] MEDS ORDERED: ESCITALOPRAM 10 MG TABLET PO SCH (09:00)
[2020-07-14] MEDS ORDERED: ASPIRIN 81 MG TAB.CHEW PO SCH (09:00)
[2020-07-14] MEDS ORDERED: FOLIC ACID/VITAMIN B COMP W-C 1 TAB TABLET PO SCH (09:00)
--- NOTE | 2020-07-14 09:23 | Discharge Summary ---
Discharge Provider Provider Patient information: Note initiated : 07/14/20 at 9:21 am Service Date, if different from initiated Date: [] Patient: Yaz Gómez 85 y/o F admitted on 07/11/20 for SOB . 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 Diuresing well. Clinically well compensated. Echocardiogram 40% EF. Continue beta-dameon/ARB * Acute hypoxic respiratory failure secondary to above clinically resolved now on room air * Hypertensive urgency resolved blood pressures at goal around 140s. Continue uptitrating beta-dameon * Hyponatremia secondary to CHF improved * CKD stage III stable * History anxiety patient remained stable Brief hospital course Patient recently seen at [facility] for pneumonia finished antibiotics several days ago. Presents today with increasing shortness of breath. Has been sleeping in recliner when she got home from [facility] but tried to sleep in her bed last night which made symptoms worse. With orthopnea. She also complains of swelling in her legs. She denies any history of cardiac issues. He had a Covid test at [facility] in here rapid which was negative. Her procalcitonin is low. He is afebrile. She denies any coughing to last night which she says the coughing started mildly and has some foamy appearance to it. 07/12-patient doing well. On diuretics. Diuresing well. Much improved work of breathing. White count down to 7 from 12.5, sodium 120 potassium down to 3.2 on replacement. Blood sugars at goal. Creatinine stable at 1.1. Covid PCR pending. Diuresis over 3000 cc. 07/13-patient doing well. Ongoing physical therapy. Continues to feel weak however now on room air. Anticipate discharge in 24 hours with additional dose diuretics. Persistent elevation systolics, uptitrate beta-dameon. 07/14-patient doing well. Discharging home on ARB/beta-dameon/diuretics. Currently on room air. Recommend follow-up with primary care physician in 2 weeks. Date of admission: 07/11/20 11:55 Discharge date: 07/14/20 Consults: 07/11/20 10:10 Consult to Physician [CONS] Stat Comment: Consulting Provider: Christian Silva Reason For Exam: Physician to Consult Discharge Meds Discharge Medications Home Medications Ca-D3-mag [id number]-uuys-mey-haleigh-bor [Calcium 600-D3 Plus (mag-zinc)] 1 tab PO DAILY 07/11/20 [History Confirmed 07/11/20 Last Taken Unknown] Lactobacillus acidophilus 10 mg PO QDAY 07/11/20 [History Confirmed 07/11/20 Last Taken 07/10/20 08:00] albuterol sulfate 2 puff INHALATION Q4HP PRN 07/11/20 [History Confirmed 07/11/20 Last Taken Unknown] aspirin [Aspirin Low Dose] 81 mg PO DAILY 07/11/20 [History Confirmed 07/11/20 Last Taken 07/10/20 08:00] chromium picolinate 400 mcg PO QDAY 07/11/20 [History Confirmed 07/11/20 Last Taken Unknown] ergocalciferol (vitamin D2) 10 mcg PO QDAY 07/11/20 [History Confirmed 07/11/20 Last Taken Unknown] escitalopram oxalate 5 mg PO QDAY 07/11/20 [History Confirmed 07/11/20 Last Taken 07/06/20 08:00] fexofenadine 180 mg PO HS 07/11/20 [History Confirmed 07/11/20 Last Taken Unknown] losartan 50 mg PO BID 07/11/20 [History Confirmed 07/11/20 Last Taken 07/10/20 20:00] vit B tipy-J-apubz acid-vit D3 1 tab PO DAILY 07/11/20 [History Confirmed 07/11/20 Last Taken Unknown] furosemide [Lasix] 20 mg PO BID #60 tab 07/14/20 [Rx Last Taken Unknown] metoprolol succinate 50 mg PO DAILY #60 tab 07/14/20 [Rx Last Taken Unknown] potassium chloride 10 meq PO QDAY #60 cap 07/14/20 [Rx Last Taken Unknown] COURSE Hospital Course Hospital course: . Discharge diagnosis: . Time Spent with Patient Time attestation: Total time spent providing and/or coordinating discharge services: EXAM Constitutional Vitals: Temp Pulse Resp BP Pulse Ox 99.0 F 90 18 158/91 94 07/14/20 07:00 07/14/20 07:00 07/14/20 07:00 07/14/20 07:00 07/14/20 07:00 Discharge Data Data Completed and Pending Labs on day of discharge: Labs from last 24 hours 07/13/20 07/13/20 09:03 09:03 WBC 7.5 RBC 4.25 Hgb 12.8 Hct 38.3 MCV 90.1 MCH 30.1 MCHC 33.4 RDW 13.2 Plt Count 236 MPV 10.6 H Neut % (Auto) 74.8 Lymph % (Auto) 12.4 L Floyd % (Auto) 10.5 Eos % (Auto) 1.6 Baso % (Auto) 0.7 Lymph # (Auto) 0.93 L Floyd # (Auto) 0.79 Eos # (Auto) 0.12 Baso # (Auto) 0.05 Absolute Neutrophils 5.64 Sodium 129 L Potassium 4.0 Chloride 91 L Carbon Dioxide 27 Anion Gap 11.0 BUN 17 Creatinine 1.0 GFR Calculation 51 Glucose 155 H Uric Acid 3.7 Calcium 9.4 Phosphorus 3.2 Magnesium 2.0 Total Bilirubin 1.0 Direct Bilirubin 0.2 GGT 16 AST 19 ALT 12 Alkaline Phosphatase 62 Lactate Dehydrogenase 199 Total Protein 6.2 Albumin 3.6 Globulin 2.6 Albumin/Globulin Ratio 1.4 Triglycerides 70 Preliminary micro results at discharge 07/11/20 04:07 Blood Culture - Preliminary Blood 07/11/20 04:01 Blood Culture - Preliminary Blood Discharge Plan Patient/Caregiver Discharge Instructions Activity: increase activity as tolerated Diet: Regular Diet Activity Restrictions/Additional Instructions: Follow-up primary care physician in 5 to 7 days Daily weight monitoring Return to ER if worsening shortness of breath, fever chills Take Lasix twice daily along with potassium once daily metoprolo succinate 50 mg daily Reviewed risk and side effect profile of medication that may include lightheadedness dizziness hypotension fall and injury. Symptoms can minimized by observing for adverse reaction, please call PCP if adverse reaction noted Prescriptions: New metoprolol succinate 25 mg Tablet Extended Release 24 Hr 50 mg PO DAILY Qty: 60 RF: 0 furosemide [Lasix] 20 mg tablet 20 mg PO BID Qty: 60 RF: 0 potassium chloride 10 mEq capsule, extended release 10 meq PO QDAY Qty: 60 RF: 0 Continued losartan 50 mg Tablet 50 mg PO BID RF: 0 ergocalciferol (vitamin D2) 10 mcg (400 unit) Tablet 10 mcg PO QDAY RF: 0 fexofenadine 180 mg Tablet 180 mg PO HS RF: 0 Lactobacillus acidophilus Capsule 10 mg PO QDAY RF: 0 albuterol sulfate 90 mcg/actuation Hfa Aerosol Inhaler 2 puff INHALATION Q4HP PRN (Reason: Bronchospasm) RF: 0 chromium picolinate 400 mcg Tablet 400 mcg PO QDAY RF: 0 escitalopram oxalate 5 mg Tablet 5 mg PO QDAY RF: 0 Ca-D3-mag ot-tccm-lmb-haleigh-bor [Calcium 600-D3 Plus (mag-zinc)] 600 mg ca lcium- 800 unit-50 mg Tablet 1 tab PO DAILY RF: 0 vit B vzwp-B-zihlz acid-vit D3 800 mcg- 2,000 unit Tablet,Chewable 1 tab PO DAILY RF: 0 aspirin [Aspirin Low Dose] 81 mg Tablet,Delayed Release (Dr/Ec) 81 mg PO DAILY RF: 0 Discontinued furosemide [Lasix] 20 mg Tablet 20 mg PO DAILY PRN (Reason: Edema) RF: 0 Follow Up Plan Patient Disposition: Home, Self-Care Prognosis: Undetermined Rehab Potential: Fair I certify that the patient requires SNF services: No Overall status at discharge: patient is progressing back to baseline Discharge Orders: Discharge Order (Routine); Ordered 07/14/20 Ordered By: Chuy Harley
[2020-07-14] MEDS: DOCUSATE SODIUM 100 MG CAPSULE PO SCH (09:55)
[2020-07-14] MEDS: LOSARTAN 50 MG TABLET PO SCH (09:56)
== END 2020-07-14 12:30 | disposition home or self-care (01) | DRG 291 ==
LOC: ED 02:23 → ICU 11:55 → MEDSUR 07-13 13:05
PROVIDERS: ADMIT Internal Medicine; ATTEND Internal Medicine